=== PATIENT | female | born 1930 | race Caucasian/White ===

== ENCOUNTER → 2017-04-08 | Outpatient (CLI) | payer OTHER ==
[~2017-04-08] MED LIST: AFINITOR5 MG PO; AROMASIN25 MG PO; ASPIRIN81 M2 PO; CALCIUM 1,0001 EACH PO; CALCIUM 600 +1 EAC1 PO; CALCIUM PO; CIPROFLOXACIN500 M1 PO; COLACE100 MG PO; ELIQUIS2.5 MG PO; FISH OIL 500 M1 EAC1 PO; GLUCOSAMINE &1 EACH PO; GLUCOSAMINE1000 MG PO; IBUPROFEN 400400 M2 PO; METOPROLOL SUCC50 MG PO; NAPROSYN500 MG; NORCO 5-325 TA1 EACH PO; OMEGA-31000 M1 PO; ONE DAILY COMP1 EAC1 PO; PRILOSEC 20 MG20 MG PO; PRILOSEC20 MG PO; SANCTURA XR60 M1 PO; SANCTURA20 MG PO; SIMVASTATIN20 MG PO; SIMVASTATIN40 MG PO; TOPROL XL25 MG PO; TROSPIUM CHLORI60 MG PO; TYLENOL325 MG PO; VITAMIN C 250250 MG PO; VITAMIN D1000 UNI1 PO; VITAMIN D31000 UNI2 PO; VITAMINC500 PO; ZOCOR; ZOCOR20 MG PO; Zofran IV
== END ==
LOC: ULTRA 13:58
DX: C50.919 Malignant neoplasm of unspecified site of unspecified female breast (principal); C79.51 Secondary malignant neoplasm of bone; C78.7 Secondary malignant neoplasm of liver and intrahepatic bile duct; R10.11 Right upper quadrant pain

== ENCOUNTER → 2017-04-10 | Outpatient (CLI) | payer OTHER | LOC: MRI 08:48 | DX: C50.919 Malignant neoplasm of unspecified site of unspecified female breast (principal); C79.51 Secondary malignant neoplasm of bone; C78.7 Secondary malignant neoplasm of liver and intrahepatic bile duct; N13.39 Other hydronephrosis; R18.8 Other ascites; K76.89 Other specified diseases of liver ==

== ENCOUNTER → 2017-07-02 | Outpatient (CLI) | payer OTHER | LOC: RAD 03:54 | DX: Z12.31 Encounter for screening mammogram for malignant neoplasm of breast (principal) ==

== ENCOUNTER → 2017-11-18 | Outpatient (CLI) | payer OTHER | LOC: RAD 12:04 | DX: C50.919 Malignant neoplasm of unspecified site of unspecified female breast (principal); C79.51 Secondary malignant neoplasm of bone; M81.0 Age-related osteoporosis without current pathological fracture; M47.896 Other spondylosis, lumbar region; M19.90 Unspecified osteoarthritis, unspecified site ==